=== PATIENT | male | born 1995 | race Hispanic/Latino ===

== ENCOUNTER 2017-08-20 06:44 | Emergency (ER) | payer BC, SELFPAY ==
[2017-08-20] MEDS ORDERED: Ibuprofen 200 MG TAB ONE (07:47)
== END 2017-08-20 07:50 | disposition home or self-care (01) ==
LOC: ERS 06:44
DX: S39.012A Strain of muscle, fascia and tendon of lower back, initial encounter (principal); F41.9 Anxiety disorder, unspecified; V89.2XXA Person injured in unspecified motor-vehicle accident, traffic, initial encounter
CPT/HCPCS: 99283

== ENCOUNTER 2019-02-09 09:24 | Emergency (ER) | payer OTHER, SELFPAY ==
--- NOTE | 2019-02-09 11:25 | RAD ---
XR Chest Pa Lat STANDARD History: Cough Comparison: None. Findings: Lungs are clear. No pneumothorax or effusion. Cardiac silhouette and mediastinal contours a re within normal limits. No acute osseous abnormality. Impression: No acute intrathoracic abnormality.
== END 2019-02-09 11:46 | disposition home or self-care (01) ==
LOC: ERS 09:24
DX: J20.9 Acute bronchitis, unspecified (principal); F41.9 Anxiety disorder, unspecified
CPT/HCPCS: 71046

== ENCOUNTER 2024-01-07 10:26 | Emergency (ER) | payer SELFPAY | END 2024-01-07 13:20 | disposition home or self-care (01) | LOC: ERS 10:26 | DX: J03.90 Acute tonsillitis, unspecified (principal) | CPT/HCPCS: 87081; 87430; 87491; 87591; 96372; 99283; J1100; J1885 ==